=== PATIENT | male | born 2000 | race Two or more races ===

== ENCOUNTER 2024-10-08 22:04 | Emergency (ER) | payer MEDICAID, SELFPAY ==
[2024-10-08 22:05] VITALS: BMI 31.0
[2024-10-08 22:09] VITALS: BP 145/84; PULSE 78; RESP 16; TEMP 37.1; O2SAT 97
[2024-10-08] MEDS: DiphenhydrAMINE INJ 50 MG/ML VIAL IM (23:14)
[2024-10-08] MEDS: MethylPREDNISolone SOD SUCC 62.5 MG/ML 2ML VIAL 125 MG IM (23:15)
[2024-10-08] MEDS: FAMOTIDINE 20 MG TABLET 40 MG PO (23:15)
--- NOTE | 2024-10-09 01:00 | PD.EDALLER ---
ED Allergic Reaction RME/HPI General Chief complaint: Allergic Reaction Stated complaint: BEE STING Time Seen by Provider: 10/08/24 22:18 Arrival date/time: 10/08/24 22:04 This is a case of 24-year-old male who came into the emergency room due to bee sting history of present illness started 1 hour prior to arrival in the emergency room when the patient was stung by a bee on the left hand patient then started to have maculopapular rash chest and itchiness no facial or throat swelling no shortness of breath no drooling of saliva patient can speak full sentences Limitations: no limitations Related Data Previous Rx's ?Medication ?Instructions ?Recorded epinephrine 0.3 mg/0.3 mL See Rx Instructions .Route 11/21/18 injection, auto-injector (EpiPen .COMPLEX #2 ea 2-Darinel) diphenhydramine HCl 25 mg capsule 25 mg PO Q6H PRN allergic reactio 02/24/19 (Benadryl) #30 caps epinephrine 0.3 mg/0.3 mL 0.3 mg (0.3 mL) subcut PRN PRN 02/24/19 injection, auto-injector (EpiPen hypersensitivity reaction #1 ea 2-Darinel) diphenhydramine HCl 25 mg capsule 25 mg PO TID PRN allergy symptoms 10/09/24 (Benadryl) #20 caps famotidine 20 mg tablet 20 mg PO BID 10 days #20 tabs 10/09/24 prednisone 20 mg tablet See Taper PO QDAY 5 days #5 tabs 10/09/24 Allergies Allergy/AdvReac Type Severity Reaction Status Date / Time bee venom protein (honey bee) Allergy HIVES,FACE,THROAT Verified 02/24/19 20:40 SWELLING Review of Systems Review of Systems Systems Reviewed: All systems reviewed, normal except as documented Constitutional Constitutional: Reports system reviewed and no additional complaints, except as documented ENT Ears, Nose, Mouth, and Throat: Reports system reviewed and no additional complaints, except as documented Cardiovascular Cardiovascular: Reports system reviewed and no additional complaints, except as documented Respiratory Respiratory: Reports system reviewed and no additional complaints, except as documented Musculoskeletal Musculoskeletal: Reports system reviewed and no additional complaints, except as documented Neurologic Neurologic: Reports system reviewed and no additional complaints, except as documented Past Medical History Past Medical History CARDIAC: Negative Congestive Heart Failure RESPIRATORY: Negative Chronic Obstructive Pulmonary Disease (COPD) GENITOURINARY: Negative Renal Disease ENDOCRINE: Negative Diabetes Mellitus Type 1 or Diabetes Mellitus Type 2 Social History SMOKING STATUS: Never smoker ED Exam General Limitations: Present no limitations General appearance: Present alert and in no apparent distress Head Head exam: Present atraumatic, normocephalic and normal inspection Eye Eye exam: Present normal appearance, PERRL and EOMI ENT ENT exam: Present normal exam, normal oropharynx, mucous membranes moist, mucous membranes dry, TM's normal bilaterally, normal external ear exam and other (No facial no throat swelling HEENT exam is normal no drooling of saliva patient can make full sentences no hoarseness of voice) Neck Neck exam: Present normal inspection and full ROM Chest Chest inspection: Present normal inspection and symmetric chest wall rise Respiratory Respiratory exam: Present normal lung sounds bilaterally; Absent respiratory distress, wheezes, stridor, accessory muscle use or prolonged expiratory phase Cardiovascular Cardiovascular exam: Present regular rate; Absent systolic murmur Abdominal Exam Abdominal exam: Present soft; Absent tenderness Extremities Exam Extremities exam: Present normal inspection, full ROM and normal capillary refill; Absent tenderness Neurological Exam Neurological exam: Present alert, oriented X3, CN II-XII intact and normal gait Course Quality Measures none Orders Category Date Time Status DiphenhydrAMINE INJ [Benadryl Inj] Med 10/08/24 22:42 Discontinued 50 mg IM X1 ONE Famotidine [Pepcid] Med 10/08/24 22:42 Discontinued 40 mg PO X1 ONE MethylPREDNISolone.* [SoluMEDROL Inj] Med 10/08/24 22:42 Discontinued 125 mg IM X1 ONE Vital Signs Vital signs: Vital Signs Temperature 98.7 F 10/08/24 22:09 Pulse Rate 78 10/08/24 22:09 Respiratory Rate 16 10/08/24 22:09 Blood Pressure 145/84 H 10/08/24 22:09 Pulse Oximetry (%) 97 10/08/24 22:09 Oxygen Delivery Method Room Air 10/08/24 22:09 Oxygen saturation 97% WNL Allergic Reaction MDM Narrative MDM Narrative:: This is a case of 24-year-old male who came into the emergency room due to bee sting history of present illness started 1 hour prior to arrival in the emergency room when the patient was stung by a bee on the left hand patient then started to have maculopapular rash chest and itchiness no facial or throat swelling no shortness of breath no drooling of saliva patient can speak full sentences physical examination patient is awake alert oriented not in distress nontoxic looking no signs and symptoms of angioedema no signs and symptoms of anaphylaxis patient noted to have small rashes on the left hand and bee sting patient has no shortness of breath lungs sound is clear no crackles no rales no retraction no stridor patient can speak full sentences no drooling of saliva no hoarseness of voice the rest of the physical examination and neurological exam is normal and unremarkable patient then was given a dose of Benadryl Solu-Medrol and Pepcid after 1 hour patient was reassessed patient condition markedly improved rash is resolved no shortness of breath lungs is clear not in distress no drooling of saliva no swelling of the throat and face patient will follow-up with PCP in 2 days for reevaluation and for any recurrence worsening symptoms or any emergent concern he will return in the emergency room immediately or call 911 patient agreed with the treatment plan and discharge patient understood the discharge instruction patient is stable to be discharged with steady gait Patient data External records reviewed:: [facility] previous records Clinical information provided by:: patient Social determinants that could affect healthcare access:: none Patient has the following chronic illnesses:: No chronic illness How is presenting disease/condition affected by chronic disease/condition?: no chronic disease Evaluation data The following diagnostics were reviewed and interpreted by me:: other (specify) (No blood test) Lab and/or radiology exams considered but not ordered:: None Interpretation Summary: None Medications / Prescriptions Medications or Prescriptions considered but not ordered:: Given Medication administrations:: Medication Administration History Discontinued Medications Diphenhydramine HCl (Diphenhydramine Inj 50 Mg/Ml Vial) 50 mg IM X1 ONE Stop: 10/08/24 22:43 Last Admin: 10/08/24 23:14 Dose: 50 mg Documented By: YVROSE Famotidine (Famotidine 20 Mg Tablet) 40 mg PO X1 ONE Stop: 10/08/24 22:43 Last Admin: 10/08/24 23:15 Dose: 40 mg Documented By: YVROSE Methylprednisolone Sodium Succinate (Methylprednisolone Sod Succ 62.5 Mg/Ml 2ml Vial) 125 mg IM X1 ONE Stop: 10/08/24 22:43 Last Admin: 10/08/24 23:15 Dose: 125 mg Documented By: PINOR Given Consultations Consultation(s) initiated? (list below): No Diagnosis Differential Diagnosis allergic reaction: anaphylaxis, allergic reaction and angioedema Most likely diagnosis given after review of the tests above:: Acute allergic reaction Admission Indicated Admission indicated?: not indicated Admission Request Was there a request for admission?: No Admission Attestation Admission request attestation: Not indicated Disposition Plan Disposition Plan: Discharge Discharge Attestation Discharge Attestation: The patient and all family members were given an opportunity to ask questions and understood the discharge instructions. Discharge instructions specifically effects, indications for sooner follow up or return to the emergency department, and the expected course of current diagnosis. Patient condition: Stable Discharge Plan Plan Patient Disposition: HOME (Self Care) Discharge Disposition comment: Stable Prescriptions/Referrals Prescriptions/Med Rec: New diphenhydramine HCl [Benadryl] 25 mg capsule 25 mg PO TID PRN (Reason: allergy symptoms) Qty: 20 0RF prednisone 20 mg tablet See Taper PO QDAY 5 Days Qty: 5 0RF Taper: Prednisone Taper 20 mg DAILY for 2 Days and 0 Hour 10 mg DAILY for 2 Days and 0 Hour 5 mg DAILY for 7 Days and 0 Hour famotidine 20 mg tablet 20 mg PO BID 10 Days Qty: 20 0RF No Action epinephrine [EpiPen 2-Darinel] 0.3 mg/0.3 mL auto-injector 0.3 mg SC PRN PRN (Reason: hypersensitivity reaction) Qty: 1 0RF diphenhydramine HCl [Benadryl] 25 mg capsule 25 mg PO Q6H PRN (Reason: allergic reactio) Qty: 30 0RF epinephrine [EpiPen 2-Darinel] 0.3 mg/0.3 mL auto-injector See Rx Instructions .ROUTE .COMPLEX Qty: 2 0RF Rx Instructions: One-time use in case of severe allergic reaction. Then report to ER immediately Referrals: No Primary/Family,Physician [Primary Care Provider] - In 1 week Problem List Clinical Impression: Acute allergic reaction, Bee sting allergy Patient/Caregiver Discharge Instructions Education Materials: ED Bite Sting Insect Gen Allergic React Additional Instructions: Follow-up with your primary care physician in 2 days for reevaluation for any recurrence worsening symptoms or any emergent concern call 911 or go to the nearest emergency room Print Language: Swedish Stand Alone Forms: Krys Award Info., Work/School Release, Patient Portal Info Letter PA/COMMERCIAL HVAC TECHNICIAN Supervising Physician PA/COMMERCIAL HVAC TECHNICIAN Supervising Physician: dr gonzales
== END 2024-10-09 01:50 | disposition home or self-care (01) ==
PROVIDERS: Emergency Provider Emergency Medicine
DX: T63.441A Toxic effect of venom of bees, accidental (unintentional), initial encounter (principal)
CPT/HCPCS: 96372; 99283; J1200; J2919; A9270